=== PATIENT | female | born 1975 | race Hispanic/Latino ===

== ENCOUNTER 2020-03-10 13:16 | Emergency (ER) | payer BC, SELFPAY ==
[2020-03-10 14:50] LABS: #Basophils 0.1 thou/uL (0.0-0.2); #Eosinphils 0.1 thou/uL (0.0-0.7); #Monocytes 0.4 thou/uL (0.11-0.59); #Neutrophils 3.5 thou/uL (1.40-6.50); %Basophils 1.1 % (0.0-1.0); %Eosinophils 1.4 % (0.0-10.0); %Lymphocytes 32.8 % (21.0-51.0); %Monocytes 6.3 % (0.0-10.0); %Neutrophils 58.4 % (42.0-75.0); Hypochromia SLIGHT = 6-15 cells (100X) (0-5/hpf); MDiff Complete? YES; Mean Corpuscular HGB CONC 29.4 g/dL (32.0-36.0); Mean Corpuscular Hemoglobin 20.3 pg (27.0-31.0); Mean Corpuscular Volume 69.2 fL (78.0-98.0); Mean Platelet Volume 6.8 fL (7.4-10.4); Microcytosis SLIGHT = 6-15 cells (100X) (0-5/hpf); Platelet Count 361 thou/uL (130-400); RBC Distribution Width 15.3 % (11.5-14.5); Red Blood Cell (RBC) Count 4.94 mill/uL (4.20-5.40)
[2020-03-10 14:58] LABS: ALT (SGPT) 19 U/L (8-55); AST (SGOT) 14 U/L (5-34); Albumin 4.2 g/dL (3.5-5.0); Alkaline Phosphatase 52 U/L (40-110); Anion Gap 16 mmol/L (10-20); BUN (Urea Nitrogen) 15 mg/dL (7.0-18.7); Bilirubin, Total 0.2 mg/dL (0.2-1.2); Calc. Creatinine Clearance 0 mL/min (70-130); Calcium 8.8 mg/dL (7.8-10.44); Carbon Dioxide 24 mmol/L (22-29); Chloride 106 mmol/L (98-107); Estimated GFR-MDRD 88; Globulin 3.6 g/dL (2.4-3.5); Glucose 97 mg/dL (70-105); Potassium 4.4 mmol/L (3.5-5.1); Protein, Total 7.8 g/dL (6.0-8.3); Sodium 142 mmol/L (136-145)
--- NOTE | 2020-03-10 15:09 | CT ---
Exam: Head CT without contrast HISTORY: Patient fell 7 days ago. Pain. COMPARISON: none FINDINGS: Hemorrhage: No intraparenchymal hemorrhage or extra-axial hematoma. Brain parenchyma: Cortical apcheco-white matter differentiation is preserved. No mass effect or midline shift. Basilar cisterns are patent. Ventricular system: Ventricles and sulci are patent and symmetric. Calvarium: Intact. Sinuses and mastoid air cells: Adequate aeration. IMPRESSION: No intracranial posttraumatic sequelae.
--- NOTE | 2020-03-10 15:50 | CT ---
CT CERVICAL SPINE WITHOUT CONTRAST: INDICATION: Fall with neck pain. COMPARISON: None. FINDINGS: No acute fracture or subluxation is evident. There is mild degenerative disk disease at C5-6. There is some reversal of the normal cervical lordosis. The visualized osseous central canal appears well preserved. The prevertebral soft tissues are normal-appearing. Craniocervical junction appears wit hin normal limits. The lung apices are clear. IMPRESSION: 1. No acute fracture or subluxation is evident. 2. Mild cervical spondylosis. POS: BH
--- NOTE | 2020-03-10 15:52 | RAD ---
CHEST 1 VIEW: INDICATION: ER examination for chest wall injury. COMPARISON: None. FINDINGS: Lungs are clear. Heart size is normal. No pleural effusion or pneumothorax is evident. No displace d rib fracture is grossly evident. The clavicles are within normal limits. The proximal humeri and scapula appear within normal limits. IMPRESSION: No acute cardiopulmonary abnormality. POS: BH
[2020-03-10] MEDS ORDERED: Ketorolac Tromethamine 30 MG/ML VIAL ONE (15:59)
[2020-03-10] MEDS ORDERED: predniSONE 20 MG TAB ONE (15:59)
== END 2020-03-10 16:15 | disposition home or self-care (01) ==
LOC: MADERS 13:16
DX: S16.1XXA Strain of muscle, fascia and tendon at neck level, initial encounter (principal); R07.9 Chest pain, unspecified; F41.9 Anxiety disorder, unspecified; W01.0XXA Fall on same level from slipping, tripping and stumbling without subsequent striking against object, initial encounter
CPT/HCPCS: 36415; 70450; 71045; 72125; 80053; 83880; 84484; 85025; 93005; 96372; J1885; J7512

== ENCOUNTER 2024-05-30 14:53 | Emergency (ER) | payer SELFPAY ==
[2024-05-30] MEDS ORDERED: Morphine 4 MG/ML VIAL ONE (15:05)
[2024-05-30] MEDS ORDERED: Morphine 2 MG/ML VIAL ONE (15:05)
== END 2024-05-30 16:08 | disposition home or self-care (01) ==
LOC: MADERS 14:53
DX: S52.502A Unspecified fracture of the lower end of left radius, initial encounter for closed fracture (principal); W01.0XXA Fall on same level from slipping, tripping and stumbling without subsequent striking against object, initial encounter
CPT/HCPCS: 25500; 96372; J2272